=== PATIENT | female | born 1950 | race Caucasian/White ===

== ENCOUNTER → 2018-02-12 | Emergency (ER) | payer OTHER, MEDICARE ==
[~2018-02-12] VITALS: Ht 167.6 cm; Wt 82.6 kg
[~2018-02-12] MED LIST: AMITRIPTYLINE150 M2 PO; ANTIVERT 25MG #1 PAC PO; CARISOPRODOL350 MG PO; DIAZEPAM5 MG PO; LIPITOR20 M2 PO; LYRICA100 M1 PO; NORCO 10-325 T1 EACH PO; OXYCODONE-ACET1 EACH PO; PERCOCET 325 MG1 TA2 PO; SYMBICORT 16010.2 GM INH; ZOFRAN4 M1 PO; ZOHYDRO ER20 MG PO; ZOHYDRO ER30 M1 PO
--- NOTE | 2018-02-12 08:12 | ED GENERAL ADULT ---
See Addendum History of Present Illness General Chief Complaint: Lower Extremity Injury Stated Complaint: R HIP QUESTION DISLOCATION Source: patient Exam Limitations: no limitations Vital Signs & Intake/Output Vital Signs & Intake/Output Vital Signs Date Time Temp Pulse Resp B/P B/P Pulse O2 O2 Flow FiO2 Mean Ox Delivery Rate 02/12 0823 95 Room Air 02/12 0806 99.8 106 18 146/67 95 Room Air Allergies Coded Allergies: bacitracin (INFECTION 02/12/18) neomycin (INFECTION 02/12/18) polymyxin B (INFECTION 02/12/18) Reconcile Medications Acetaminophen/Hydrocodone Bi (Benjamin 325 MG-10 MG) 1 TAB TAB 1 TAB PO TID PAIN (Reported) Amitriptyline Hydrochloride 150 MG TAB 1 TAB PO QPM SLEEP (Reported) Atorvastatin Calcium (Lipitor) 20 MG TABLET 1 TAB PO DAILY CHOLESTEROL ( Reported) Budesonide/Formoterol Fumara (Symbicort 160-4.5 Mcg Inhaler) 160 MCG/4.5 MCG PUF 2 PUF INH BID BREATHING PROBLEMS (Reported) Diazepam 5 MG TAB 1 TAB PO TID SPASMS (Reported) Hydrocodone Bitartrate (Zohydro ER) 30 MG CER 1 CAP PO BID PAIN (Reported) OXYCODONE HCL/ACETAMINOPHEN (Percocet 5-325 MG Tablet) 325 MG/5 MG TAB 1 TAB PO Q4-6 PRN PRN PAIN Pregabalin (Lyrica) 100 MG CAPSULE 1 CAP PO BID NEUROPATHY (Reported) Triage Nurses Notes Reviewed? yes Onset: Abrupt Duration: hour(s): Timing: recent history HPI: 02/12/18 9:24 AM 60-year-old female presents to the emergency department with sudden onset of right hip pain. According to the patient she was in her usual state of health until today when she was walking and a sudden onset of right hip pain. She denies trauma to the hip. She has an obvious deformity of the right hip. She has a history of an open reduction and internal fixation and has a right hip prosthesis. She has no pain to the foot and has an excellent right dorsalis pedis pulse. She does smoke. Past History Travel History Traveled to [place] past 21 day No Medical History Any Pertinent Medical History? see below for history Neurological: NONE EENT: NONE Cardiovascular: hypertension, hyperlipidemia Respiratory: COPD Gastrointestinal: NONE Hepatic: NONE Renal: NONE Musculoskeletal: spinal stenosis Psychiatric: NONE Endocrine: NONE Blood Disorders: NONE Cancer(s): NONE INFRASTRUCTURE PROJECT MANAGER/Reproductive: NONE Surgical History Surgical History: RIGHT HIP REPLACEMENT, CHOLY, HYSTERECTOMY, ABD HERNIA Psychosocial History What is your primary language Amharic Tobacco Use: Current Daily Use Daily Tobacco Use Amount/Type: => 5 Cigarettes daily ETOH Use: denies use Illicit Drug Use: denies illicit drug use Family History Hx Contributory? No Review of Systems Review of Systems Constitutional: Reports: fever. EENTM: Denies: visual changes. Respiratory: Denies: short of breath. Cardiovascular: Denies: chest pain. GI: Denies: abdominal pain. Genitourinary: Reports: no symptoms. Musculoskeletal: Reports: see HPI. Skin: Denies: rash. Neurological/Psychological: Reports: no symptoms. Hematologic/Endocrine: Reports: no symptoms. Immunologic/Allergic: Reports: no symptoms. Physical Exam Physical Exam General Appearance: well developed/nourished, awake, anxious Head: atraumatic, normal appearance Eyes: Bilateral: normal appearance, PERRL, EOMI. Ears, Nose, Throat: normal pharynx, normal ENT inspection, hearing grossly normal Neck: normal inspection, supple, full range of motion Respiratory: normal breath sounds, chest non-tender, no respiratory distress Cardiovascular: regular rate/rhythm Peripheral Pulses: 4+ dorsalis pedis (R) Gastrointestinal: non-tender Back: decreased range of motion Extremities: tenderness Neurologic/Psych: no motor/sensory deficits, awake, alert, oriented x 3 Skin: intact, normal color, warm/dry Core Measures ACS in differential dx? No CVA/TIA Diagnosis: No Sepsis Present: No Sepsis Focused Exam Completed? No Progress Differential Diagnoses I considered the following diagnoses in my evaluation of the patient: [Hip dislocation, fracture] Plan of Care: Orders Procedure Date/time Status COMPREHENSIVE METABOLIC PANEL 02/12 0858 Complete CBC WITHOUT DIFFERENTIAL 02/12 0858 Complete XRY-HIP 2-3 VIEWS, RIGHT 02/12 0845 Active Current Medications Sig/Lauren Start time Last Medication Dose Stop Time Status Admin Sodium Chloride 1,000 ML ONCE ONE 02/12 0900 AC 02/12 (Normal Saline 0.9%) 02/12 1539 0911 Laboratory Tests 02/12/18 0920: Anion Gap 14, Estimated GFR > 60, BUN/Creatinine Ratio 16.7, Glucose 203 H, Calcium 9.5, Total Bilirubin 0.4, AST 43 H, ALT 53 H, Alkaline Phosphatase 148 H, Total Protein 7.3, Albumin 4.1, Globulin 3.2, Albumin/Globulin Ratio 1.3, CBC w Diff NO MAN DIFF REQ, RBC 4.69, MCV 89.2, MCH 30.5, MCHC 34.2, RDW 13.1, MPV 10.1, Gran % 65.6, Lymphocytes % 29.3, Monocytes % 3.5, Eosinophils % 1.0, Basophils % 0.6, Absolute Granulocytes 8.8 H, Absolute Lymphocytes 4.0 H, Absolute Monocytes 0.5, Absolute Eosinophils 0.1, Absolute Basophils 0.1 Initial ED EKG: none Departure Departure Disposition: STILL A PATIENT Condition: Stable Clinical Impression Primary Impression: Hip dislocation, right Referrals: Lynne Taylor APRN (PCP/Family) Departure Forms: Customer Survey General Discharge Information Comments 02/12/18 We will also get a neurology consultation as he has had a progressive deterioration in his baseline level of functioning. Critical Care Note Critical Care Note Critical Care Time: non-applicable
[2018-02-12 09:25] LABS: ABSOLUTE BASOPHIL COUNT 0.1 /CUMM (0.0-0.2); ABSOLUTE EOSINOPHIL COUNT 0.1 /CUMM (0.0-0.7); ABSOLUTE GRANULOCYTE CT 8.8 /CUMM (1.4-6.5); ABSOLUTE MONOCYTE COUNT 0.5 /CUMM (0.10-0.60); BASOPHIL % 0.6 % (0.0-2.0); GRANULOCYTE % 65.6 % (42.2-75.2); HEMATOCRIT 41.8 % (37-47); MEAN CORPUSCULAR HGB 30.5 PG (27.0-31.0); MEAN CORPUSCULAR HGB CONC 34.2 G/DL (33.0-37.0); MEAN CORPUSCULAR VOLUME 89.2 FL (81.0-99.0); MEAN PLATELET VOLUME 10.1 FL (7.4-10.4); PLATELET COUNT 211 /CUMM (130-400); RBC DISTRIBUTION WIDTH 13.1 % (11.5-14.5); RED BLOOD CELL CT 4.69 /CUMM (4.20-5.40); WHITE BLOOD CELL COUNT 13.5 /CUMM (4.8-10.8)
--- NOTE | 2018-02-12 10:54 | RADIOLOGY REPORT ---
EXAMINATION: XR HIP, RIGHT CLINICAL INFORMATION: Right hip pain. COMPARISON: None TECHNIQUE: 3 views of the right hip. FINDINGS: The patient has a prosthetic hip which is dislocated superolaterally. The prosthetic components appear intact and no associated bony fracture is seen. IMPRESSION: Dislocated right hip prosthesis.
[2018-02-12 14:15] VITALS: BP 193/87
--- NOTE | 2018-02-12 14:23 | RADIOLOGY REPORT ---
EXAMINATION: XR HIP, RIGHT CLINICAL INFORMATION: Status post reduction. COMPARISON: Right hip radiograph performed today. TECHNIQUE: Single frontal view of the right hip. FINDINGS: There is redemonstration of superolateral dislocation of the right femoral prosthesis with respect to the acetabular cup component. No new fracture is seen. IMPRESSION: Dislocated right hip arthroplasty. No fracture.
--- NOTE | 2018-02-12 15:16 | RADIOLOGY REPORT ---
EXAMINATION: XR HIP, RIGHT CLINICAL INFORMATION: Reduction in OR. COMPARISON: Right hip radiograph performed earlier the same day. TECHNIQUE: Single view of the right hip. FINDINGS: Redemonstration of superolateral dislocation of the right femoral prosthesis with respect to the acetabular cup component. No fracture. IMPRESSION: Redemonstration of dislocated right hip arthroplasty. No fracture.
--- NOTE | 2018-02-12 15:33 | Operative Report ---
Operative/Inv Procedure Report Surgery Date: 02/12/18 Name of Procedure: Closed reduction right dislocated total hip arthroplasty under general anesthesia. Pre-Operative Diagnosis: Right dislocated total hip arthroplasty. Post-Operative Diagnosis: Same. Estimated Blood Loss: none Surgeon/Sectional Belt Mold Assembler: Dany Day M.D. Anesthesia: TIVA Monitors: EKG/blood pressure/oxygen saturation. IV Fluids: Lactated Ringer's. Implants: None. Urine Output: Adequate. Drains: None. Specimens: None. Microbiology: None. Tourniquet: None. Complications: None known. Condition: Stable. Operative Indication: The patient is a 68-year-old female roughly 20 years status post right hip primary total hip arthroplasty and roughly 12 years status post closed reduction of a prior dislocated total hip arthroplasty under general anesthesia in the operating room who sustained another closed reduction of this same hip arthroplasty earlier today. The dislocation occurred early this morning when the patient was swinging her leg trying to get out of bed. It sounds as if she swung her leg into a position that might have crossed the right leg over the left leg as she was trying to get out of bed. She was eventually brought to the [facility] emergency room for evaluation. X-rays of the hip and pelvis showed a dislocated total hip arthroplasty with no obvious associated fractures or dissociation of the acetabular liner from the acetabular socket. The patient underwent an attempted closed reduction of the right hip under moderate sedation in the emergency room. This proved to be unsuccessful at which time orthopedics was contacted for additional management. The patient presently complains of reasonably significant right hip pain. Her pain is exacerbated with any type of right hip motion. On visual examination there is internal rotation and shortening of the right lower extremity. Motor and sensory function to the right lower extremity appear to be grossly intact. DP and PT pulses 1+. Capillary refill is brisk. The risks and benefits and expected outcomes of attempting a closed reduction of the patient's dislocated right total hip arthroplasty was discussed with the patient at length. She is generally familiar with this having undergone this same procedure for the same problem 12 years ago. The plan is to perform the closed reduction with maximal muscle relaxation/paralysis under short-term general anesthesia and if successful the plan is to send her home from the PACU to be followed up in the office for ongoing monitoring of the hip prosthesis. All of the patient's questions were answered at length. She did wish to move forward with closed reduction of her dislocated total hip arthroplasty under general anesthesia as recommended. Surgical consent was obtained. Operative/Procedure Note Note: The patient was brought to the operating room directly from the emergency room on her emergency room stretcher. Once in the operating room appropriate monitoring leads and lines were placed. The patient was given a very short-term muscle relaxant and anesthetic. A closed reduction of the hip was attempted by placing a sheet wrapped around the upper thigh to help provide some lateral distraction of the thigh and femoral component relative to the acetabular component. The pelvis was stabilized. I climbed up onto the hospital stretcher and manipulated the hip. There was a shift which did seem generally similar to reduction of the dislocated hip arthroplasty. That being said, there did appear to be some restriction of hip range of motion for rotation with the hip in extension though there was no restriction of hip range of motion for flexion. A hip abduction pillow was placed between the thighs and legs. A flat plate x-ray of the pelvis was obtained and it showed an unsuccessful initial attempt at closed reduction of the hip with the femoral prosthesis still located superior to the acetabular rim. The patient was sedated once again this time more deeply with muscle relaxant medication which did seem to provide better muscle relaxation. The same sequence of events was performed and the hip was reduced. This time when the hip was reduced rotation of the hip with the hip in extension seemed to be good and was clearly different than the first attempted closed reduction of the hip arthroplasty. The hip abduction pillow was placed once again between the lower extremities. A repeat flat plate of the AP pelvis was obtained and this time it did show successful reduction of the head of the femoral component back into the acetabular liner/acetabular component. The patient was awakened from sedation and brought to the recovery room in stable condition having tolerated the procedure well. Findings: Successful reduction of femoral component into the acetabular component. Discharge Disposition: PACU
--- NOTE | 2018-02-12 15:44 | RADIOLOGY REPORT ---
EXAMINATION: XR HIP, RIGHT CLINICAL INFORMATION: Right hip reduction. COMPARISON: Same day right hip radiographs. TECHNIQUE: An AP view of the right hip. FINDINGS: The right hip prosthesis has been reduced. No hardware failure is demonstrable. There are no fractures. IMPRESSION: Interval reduction of previously dislocated right hip prosthesis.
== END ==
LOC: ERH 08:02 → ER-OR 08:16 → ERH 08:16
PROVIDERS: Emergency Medicine
DX: T84.020A Dislocation of internal right hip prosthesis, initial encounter (principal); X58.XXXA Exposure to other specified factors, initial encounter; Y93.01 Activity, walking, marching and hiking; Y92.9 Unspecified place or not applicable; I10 Essential (primary) hypertension; E78.5 Hyperlipidemia, unspecified; J44.9 Chronic obstructive pulmonary disease, unspecified
CPT/HCPCS: 73501; 73502-RT; 96374; 96375; 96376; J0131; J1170; J2250; J3010